=== PATIENT | female | born 1990 | race Caucasian/White ===

== ENCOUNTER 2023-11-29 10:10 | Outpatient (CLI) | payer OTHER, SELFPAY ==
--- NOTE | 2023-11-29 10:15 | US_ITS ---
Final Report Patient: TIFFANIE FUENTES Facility:?[facility] Patient ID:?[id number] Site Patient ID:?[id number]. Site :?1990 Study:? OB Pelvis -11/29/2023 10:49:14 AM Ordering Physician:HILARIA SHETH Final Report: INDICATION: First trimester scan, establish dates. COMPARISON: None. TECHNIQUE: Real-time ibarra-scale imaging of the pelvis was performed. FINDINGS: Sonographic imaging demonstrates a single living intrauterine gestation. The embryo demonstrates a regular cardiac rate measuring 169 beats per minute. The embryo`s crown-rump length measurement of 2.8 cm corresponds to a gestational age of 9 weeks 4 days with a sonographic due date of 06/29/2024. There is a normal-appearing yolk sac. There are no gross abnormalities noted within the embryo at this early state of development. The gestational sac has a normal appearance. There is no evidence of a perigestational hemorrhage. The amount of fluid within the sac appears appropriate for gestational age. The cervix is closed. The myometrium appears normal. The ovaries are of normal size. Corpus luteal cyst left ovary measuring 1.4 cm. There are no suspicious fluid collections noted in the cul-de-sac. IMPRESSION: Normal first trimester OB ultrasound exam. Gestational age calculated at 9 weeks 4 days with a sonographic due date of 06/29/2024. Dictated by Chandler Veronica MD @ 11/29/2023 11:46:45 AM (Electronic Signature)
== END 2023-11-29 10:11 | disposition home or self-care (01) ==
LOC: US 10:11
PROVIDERS: PCP Advanced Practice Midwife; Visit Provider Advanced Practice Midwife
DX: Z34.91 Encounter for supervision of normal pregnancy, unspecified, first trimester (principal); Z3A.09 9 weeks gestation of pregnancy
CPT/HCPCS: 76801; 86703; 86706; 86803; 86850; 86900; 86901; 87086; 87340

== ENCOUNTER 2023-11-29 12:02 | Outpatient (CLI) | payer OTHER, SELFPAY | END 2023-11-29 12:03 | disposition home or self-care (01) | LOC: NFLDREF 12:05 | PROVIDERS: PCP Advanced Practice Midwife; Visit Provider Advanced Practice Midwife | DX: Z34.91 Encounter for supervision of normal pregnancy, unspecified, first trimester (principal) | CPT/HCPCS: 80177; 86592; 86703; 86704; 86706; 86762; 86787; 86803; 86850; 86900; 86901; 87086; 87340 ==

== ENCOUNTER 2023-12-27 12:14 | Outpatient (CLI) | payer OTHER, SELFPAY ==
--- NOTE | 2023-12-27 12:30 | US_ITS ---
Patient: TIFFANIE FUENTES Facility:?[facility] Patient ID:?[id number] Site Patient ID:?[id number]. Site :?1990 Study:?US-OB Pelvis OB TA < 14 WEEKS-12/27/2023 12:48:32 PM Ordering Physician:?IVANIA URENA M.D. Final Report: Indication: No heart tones LMP: 09/23/2023 Technique: Real-time sonographic images of the pelvis were obtained transabdominally using grayscale, color, and Doppler imaging. Comparison: 11/29/2023 Findings: Uterus: Normal. Gestational sac: Mean sac diameter measures 7.3 centimeter. pole: [place]-rump length measures 6.4 centimeter, compatible with an average ultrasound age of 12 weeks 6 days. Yolk sac: Not visualized. heart rate: None. Right ovary: Not visualized. Left ovary: Not visualized. Other: No free fluid. Impression: The crown-rump length is <7 mm, with no heartbeat visualized. Findings are consistent with early failure. Dictated by Anthony Tatum MD @ 12/27/2023 1:59:24 PM Signed by:?Anthony Tatum MD @12/27/2023 1:59:24 PM (Electronic Signature)
== END 2023-12-27 12:15 | disposition home or self-care (01) ==
PROVIDERS: PCP Advanced Practice Midwife; Visit Provider Obstetrics & Gynecology
DX: O36.8310 Maternal care for abnormalities of the fetal heart rate or rhythm, first trimester, not applicable or unspecified (principal); Z3A.12 12 weeks gestation of pregnancy
CPT/HCPCS: 76801

== ENCOUNTER 2024-01-28 20:12 | Day surgery (SDC) | payer OTHER, SELFPAY ==
[2024-01-28 20:18] VITALS: BP 117/78; PULSE 128; RESP 18; TEMP 36.8; O2SAT 98; BMI 27.3
--- NOTE | 2024-01-28 20:24 | ED_ITS ---
HPI - General Date Seen: 01/28/24 Chief complaint: OB/Uterine Contractions Stated complaint: 12 weeks , miscarrying Time Seen by Provider: 01/28/24 20:24 Source: patient, family, RN notes reviewed and old records reviewed Mode of arrival: ambulatory Limitations: no limitations History of Present Illness HPI Narrative: Hemalatha is a very pleasant 33-year-old female with a history of seizure disorder, previous who presents to [place] ER for evaluation regarding difficulty passing products of conception. Patient initially seen in November at our OB Clinic at approximately 9 weeks with an EDC 06/29/24 per reported LMP on 09/23/23. Unfortunately on December 26 it was noted that there was no heartbeat. The fetus did not pass and she was started on Mifepristone yesterday. She had cramping throughout the day today and stated is some significant bleeding at home. She comes to the emergency room because she still has products of conception in her vagina that will not come out. States she can feel something protruding from her vagina. She denies fever today she has not had any lightheadedness or fainting. She has not taken anything for the pain. Related Data Home Medications Medication Instructions Recorded Confirmed levetiracetam 750 mg tablet 750 mg PO BID 11/29/23 01/27/24 (Keppra) docosahexaenoic acid 200 mg mg PO 12/27/23 01/27/24 capsule ( DHA) Previous Rx's Medication Instructions Recorded ibuprofen 800 mg tablet 800 mg PO Q8H PRN pain #14 tabs 01/27/24 ondansetron 4 mg disintegrating 4 mg PO Q8H PRN nausea and 01/27/24 tablet vomiting #10 tabs Allergies Allergy/AdvReac Type Severity Reaction Status Date / Time No Known Drug Allergies Allergy Verified 01/27/24 08:25 Review of Systems Status of ROS: Reports: 6 or more systems reviewed and unremarkable except as noted in History and below Narrative: Denies personal or family history of problems with anesthesia. Denies recent illness fever or chills. No personal or family history of bleeding or clotting disorders. Const: Denies: fever or chills Cardio: Denies: shortness of breath with exertion Resp: Denies: shortness of breath GI: Reports: abdominal pain; Denies: nausea or vomiting : Denies: painful urination PFSH PFS Medical History Exercise-induced asthma ?J45.990 - Exercise induced bronchospasm (ICD-10) Surgical History History of delivery ?Z98.891 - History of uterine scar from previous surgery (ICD-10) H/O adenoidectomy ?Z90.89 - Acquired absence of other organs (ICD-10) History of tonsillectomy ?Z90.89 - Acquired absence of other organs (ICD-10) History of toe surgery ?Z98.890 - Other specified postprocedural states (ICD-10) Family History Mother High blood pressure Osteoporosis Father Stroke Testicular cancer Maternal Grandfather Coronary artery disease Social History Narrative: SOCIAL? ? Education: Bachelor's? ? 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 ? Partner: Dilip? 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 ? Pets: dog? ? Abuse: Denies past Safe at home with current partner ? ? ? Special Diet: Denies? ? Ok with a blood transfusion: yes? ? Culture or scientologist beliefs: denies? RISK FACTORS? ? Exercise Times/wk: 3-4 week, cardio and weights? ? Depression/Anxiety: denies? ? Previous Treatments NA ? Therapy NA FOX: 2 PHQ 9: 3? ? Seat Belt Use: Routinely ? Smoking: Denies past/present? ? Alcohol/day: Denies while ? ?When not 6 glasses of wine a month Caffeine: Coffee one daily? ? What is your current living situation?: I presently have a place to live Problems where you live: no known problems In the past 12 months, utilities in danger of being shut off: no In past 12 months, lack of transportation kept you from medical appts, meetings, work, or getting things needed for daily living: no In the past 12 mos, have been you worried that your food would run out before you had money to buy more?: never true In the past 12 mos, the food you bought just didn't last and you didn't have money to buy more?: never true Smoking Status: Unknown if ever smoked How often does anyone, including family, friends and others, physically hurt you : never How often does anyone, including family, friends and others, insult or talk down to you: never How often does anyone, including family, friends and others, threaten you with harm: never How often does anyone, including family, friends and others, scream or curse at you: never Little interest or pleasure in doing things: not at all Feeling down, depressed, or hopeless: not at all Exam Narrative: Exam Narrative: Hemalatha is alert and oriented. She is very nervous about taking off adult diaper that she has on this time because she states there will be a lot of blood. She does agree to be examined in bed.. No respiratory distress at this time. Lungs are clear bilaterally. Heart with a tachycardic rate but normal rhythm. Abdomen is soft. Oral cavity with moist mucous membranes. Dentition is intact. Posterior oropharynx clearly seen. Neck is supple without lymphadenopathy. Examination of the vaginal area shows minimal to moderate clots at the vaginal opening. Gently these are removed. Patient is able to bear down and we do see more products of conception which I have removed. However, bimanual exam shows retained products in the vaginal vault that do not appear to be free early moving. Const: Vital Signs, click to edit/add: Vital Signs - 24 hr 01/28/24 20:18 01/28/24 21:20 Temperature 98.2 F 97.8 F Pulse Rate [Pulse Oximeter] 128 H 78 Respiratory Rate 18 20 Blood Pressure [Ri ght Upper Arm] 117/78 108/60 Pulse Oximetry 98 99 Oxygen Delivery Me thod Room Air Room Air Documenting provider has reviewed patient's vital signs: yes Course Course ED Course: At this time Dr. Lozano is professional skater for OBGYN. She is kind enough to consult in the ED this evening and unfortunately after removal of products and ultrasound there are still retained products of conception. Thus patient will be going to the OR for suction and curettage. Patient initially declines IV. Patient Rh positive. Vital Signs Vital signs: Initial Vital Signs Temperature 98.2 F 01/28/24 20:18 Temperature Source Temporal Artery Scan 01/28/24 20:18 Pulse Rate 128 H 01/28/24 20:18 Respiratory Rate 18 01/28/24 20:18 Blood Pressure 117/78 01/28/24 20:18 Blood Pressure Mean 91 01/28/24 20:18 Blood Pressure Position Sitting 01/28/24 20:18 Pulse Oximetry 98 01/28/24 20:18 Oxygen Delivery Method Room Air 01/28/24 20:18 Vital Signs Temperature 98.2 F 01/28/24 20:18 Pulse Rate 128 H 01/28/24 20:18 Respiratory Rate 18 01/28/24 20:18 Blood Pressure 117/78 01/28/24 20:18 Pulse Oximetry 98 01/28/24 20:18 Oxygen Delivery Method Room Air 01/28/24 20:18 Temperature 97.8 F 01/28/24 21:20 Pulse Rate 78 01/28/24 21:20 Respiratory Rate 20 01/28/24 21:20 Blood Pressure 108/60 01/28/24 21:20 Pulse Oximetry 99 01/28/24 21:20 Oxygen Delivery Method Room Air 01/28/24 21:20 Medications Administered Medications: Generic Name Dose Route Start Last Admin Trade Name Freq PRN Reason Stop Dose Admin Lactated Ringer's 1,000 mls @ 35 mls/hr 01/28/24 22:15 01/28/24 22:31 Lactated Ringers 1000 Ml IV 35 mls/hr .Q24H LEIDY Administration Discontinued Medications Generic Name Dose Route Start Last Admin Trade Name Freq PRN Reason Stop Dose Admin Doxycycline Hyclate 200 mg/ 250 mls @ 250 mls/hr 01/28/24 21:58 01/28/24 22:29 Sodium Chloride IVPB 01/28/24 21:59 250 mls/hr ONCE ONE Administration MDM - OB/Uterine Contractions MDM Narrative Medical decision making narrative: 1. Missed AB-retained products of conception noted on ultrasound. OBGYN consult and patient will be going to the OR tonight for suction and curettage. An IV has been placed. Patient is Rh positive. Further labs and test per Dr. Lozano. 2. History of seizure disorder-patient notes that her seizure disorder is under control. I do ask her if she needs medication prior to going to the OR in she states she does not. She has been told by her neurologist that she is able to go off of her medications if she chooses to do so. 2. Disposition-admit to same-day surgery under the care of Dr. Lozano Medical Records Attestation: I reviewed the patient's medical records. Lab Data Attestation: I reviewed the patient's lab results. Labs: Lab Results 01/28/24 Range/Units 21:58 WBC 10.69 (4.50-11.00) K/uL RBC 4.09 (4.00-5.20) m/uL Hgb 11.6 L (12.0-16.0) gm/dL Hct 35.3 (33.0-51.0) % MCV 86 (80-100) fL MCH 28 (26-34) pg MCHC 33 (32-36) gm/dL RDW Coeff of Hiram 12.7 (11.5-15.5) % Plt Count 240 (140-440) K/uL Neut % (Auto) 78.6 H (42.0-72.0) % Lymph % (Auto) 14.4 L (20-44) % [place]on % (Auto) 5.9 (0.0-11.0) % Eos % (Auto) 0.3 (0.0-7.0) % Baso % (Auto) 0.6 (0.0-3.0) % Neut # (Auto) 8.40 H (1.7-7.0) K/uL Lymph # (Auto) 1.50 (0.90-2.90) K/uL [place] # (Auto) 0.60 (0.00-0.90) K/UL Eos # (Auto) 0.03 (0.00-0.50) K/uL Baso # (Auto) 0.06 (0.00-0.30) K/uL Abs Immat Gran (auto) 0.02 (0.00-0.30) K/uL Imm/Tot Granulo (auto) 0.2 % Blood Type A Positive Antibody Screen NEGATIVE Imaging Data US - abdomen: Attestation: I have reviewed the pertinent imaging results. Radiologist's impression: Findings: The previously seen intrauterine gestation is no longer visualized. There is a small amount residual fluid within the endometrial cavity in the uterine fundus. The endometrium is not clearly depicted and has not been measured. There is moderate prominence of color Doppler blood flow within the myometrium and a question of increased Doppler blood flow within the endometrium. Retained products of conception is not excluded. IMPRESSION: 1. Previously seen intrauterine gestation is no longer visualized. Small amount of residual fluid is noted in the fundal endometrial cavity. 3. Increased color Doppler blood flow as noted. Retained products of conception is not excluded. Discharge Plan Discharge Clinical Impression: Missed , Seizure disorder Patient Disposition: XFER to OR Condition: Stable
--- NOTE | 2024-01-28 21:01 | US_ITS ---
Patient: TIFFANIE FUENTES Facility:?[facility] Patient ID:?[id number] Site Patient ID:?[id number]. Site :?1990 Study:?US-OB Pelvis OB F/U MISSED AB-01/28/2024 9:50:23 PM Ordering Physician:?JENNI PACE M.D. Final Report: INDICATION: Missed . OBSTETRICAL/PELVIC ULTRASOUND Comparison: 12/27/2023 ultrasound. Findings: The previously seen intrauterine gestation is no longer visualized. There is a small amount residual fluid within the endometrial cavity in the uterine fundus. The endometrium is not clearly depicted and has not been measured. There is moderate prominence of color Doppler blood flow within the myometrium and a question of increased Doppler blood flow within the endometrium. Retained products of conception is not excluded. IMPRESSION: 1. Previously seen intrauterine gestation is no longer visualized. Small amount of residual fluid is noted in the fundal endometrial cavity. 3. Increased color Doppler blood flow as noted. Retained products of conception is not excluded. BRANDIN WASHINGTON MD [employer] [employer] Dictated by Adis Washington MD @ 01/28/2024 10:22:43 PM Dictated by: Adis Washington MD @ 01/28/2024 22:23:31 Signed by:?Adis Washington MD @01/28/2024 10:23:31 PM (Electronic Signature)
[2024-01-28 21:20] VITALS: BP 108/60; PULSE 78; RESP 20; TEMP 36.6; O2SAT 99
--- NOTE | 2024-01-28 22:09 | P.GYNCN_ITS ---
MIRROR FRAMER - CN: HPI Data of Consult Time Seen by Provider: 22:09 Date Seen: 01/28/24 Patient: [facility] Patient Consult date: 01/28/24 Primary Care Provider: Not a Local Provider Consult Narrative Reason for consult: vaginal bleeding Narrative: Hemalatha Burleson is a 33 year old female who presented to the ED with incomplete . She was diagnosed an early loss on 12/28/23 at 13.4 weeks by LMP. CRL was consistent with 12.6 weeks gestation at that time but no heart tone. She saw Dr. Joel who counseled her on expectant versus medical versus surgical management options. Originally she had opted for a suction dilation curettage. However, she decided to do expected management instead. She returned to clinic on 01/27/2024 after having no signs or symptoms of passing and ask for medical management. She took move upper stone in misoprostol yesterday. She endorsed passing the fetus after cramping all day but she reports that there are still products left that she can feel in her vagina and it won't come out. She presented to the ED due to not being able to pass whatever is left in the vaginal vault and having increased bleeding. I was able to see retained products protruding the cervical os. Products of conception was grasped with ring forceps and removed. After removal of presenting products of conception from cervical os, patient still had bleeding. It was not brisk, but it was persistent. I recommended ultrasonographic evaluation to make sure she does not of retained products of conception. However, given the way that she is bleeding, I suspect there is still retained products. Patient is very tearful about this as she is hoping not to have need a suction D&C. Bedside ultrasound showed retained products of conception in the lower uterine segment. I informed Hemalatha that she'll continue to keep bleeding if there is any retained products left. I recommend a D&C as the best course of action at this point. Surgical management is is the primary mode of treatment if patient presents in an emergent situation which include hemorrhage (excessive/life threatening bleeding) or infection. It is also used if the previous 2 options fail. I reviewed how this procedure is performed. This is done in the operating room with conscious sedation. The cervix is dilated open, a plastic curette is advanced into the uterus and connected to a vacuum. The vacuum then pulls the out of the uterus. All tissue removed from the uterus is sent to the lab for testing to verify that tissue was obtained. I do not recommend cytogenetic testing unless the patient has had more than 1 miscarriage. Patient can, of course, request it if desired. Ultrasound guidance is generally not required. However, for this case, I will use ultrasound guidance due to her prolonged course. Risks with a suction curettage include injury to cervix or uterus -. Infection in the uterus resulting in endometritis -. She will receive antibiotics in the IV in the operating room prior to the procedure to prevent infection (200 mg of doxycycline). Chance of Asherman syndrome resulting in inability to conceive a in the future: 10/2499. Chance of anesthesia complications are extremely rare: Less than 1/100,000 especially with negative personal or family history of anesthesia issues. Expected recovery: Mild cramping after miscarriage/surgery usually controlled with [id number] extra-strength Tylenol and ibuprofen. Only restriction for activity postoperatively/after a miscarriage is nothing vaginally for 2 weeks. She should expect to have some bleeding for 2-4 weeks after surgery or spontaneous miscarriage. If she continues to have bleeding past 4 weeks I would recommend a follow-up ultrasound to assess for retained products of conception. All of her questions were answered. After reviewing risk, benefits and alternatives, patients desires to proceed with suction dilation and curettage. Patient's blood type: A+. RhoGAM unindicated. cc:: CC: Review of Systems Narrative: Patient denies fever, chills, chest pain, SOB, n/v, headache, vision changes, or dizziness. Positive for lower abdominal cramping. [facility] Medical History Exercise-induced asthma ?J45.990 - Exercise induced bronchospasm (ICD-10) Surgical History History of delivery ?Z98.891 - History of uterine scar from previous surgery (ICD-10) H/O adenoidectomy ?Z90.89 - Acquired absence of other organs (ICD-10) History of tonsillectomy ?Z90.89 - Acquired absence of other organs (ICD-10) History of toe surgery ?Z98.890 - Other specified postprocedural states (ICD-10) Family History Mother High blood pressure Osteoporosis Father Stroke Testicular cancer Maternal Grandfather Coronary artery disease Social History Narrative: SOCIAL? ? Education: Bachelor's? ? Work: quality for medical devices? ? Partner: Dilip? 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 ? Pets: dog? ? Abuse: Denies past Safe at home with current partner ? ? ? Special Diet: Denies? ? Ok with a blood transfusion: yes? ? Culture or mandaeism beliefs: denies? RISK FACTORS? ? Exercise Times/wk: 3-4 week, cardio and weights? ? Depression/Anxiety: denies? ? Previous Treatments NA ? Therapy NA FOX: 2 PHQ 9: 3? ? Seat Belt Use: Routinely ? Smoking: Denies past/present? ? Alcohol/day: Denies while ? ?When not 6 glasses of wine a month Caffeine: Coffee one daily? ? What is your current living situation?: I presently have a place to live Problems where you live: no known problems In the past 12 months, utilities in danger of being shut off: no In past 12 months, lack of transportation kept you from medical appts, meetings, work, or getting things needed for daily living: no In the past 12 mos, have been you worried that your food would run out before you had money to buy more?: never true In the past 12 mos, the food you bought just didn't last and you didn't have money to buy more?: never true How often does anyone, including family, friends and others, physically hurt you : never How often does anyone, including family, friends and others, insult or talk down to you: never How often does anyone, including family, friends and others, threaten you with harm: never How often does anyone, including family, friends and others, scream or curse at you: never Little interest or pleasure in doing things: not at all Feeling down, depressed, or hopeless: not at all Meds Home Medications and Allergies Home Medications Medication Instructions Recorded Confirmed Type levetiracetam 750 mg tablet 750 mg PO BID 11/29/23 01/27/24 History (Keppra) docosahexaenoic acid 200 mg mg PO 12/27/23 01/27/24 History capsule ( DHA) Allergies Allergy/AdvReac Type Severity Reaction Status Date / Time No Known Drug Allergies Allergy Verified 01/27/24 08:25 MIRROR FRAMER - Exam Physical Exam: Vital signs: Temp Pulse Resp BP Pulse Ox O2 Del Method 98.2 F 128 H 18 117/78 98 Room Air 01/28/24 20:18 01/28/24 20:18 01/28/24 20:18 01/28/24 20:18 01/28/24 20:18 01/28/24 20:18 Narrative: Physical exam: General: Tearful and grimacing in pain Psych: Alert and oriented x4, full affect HEENT: Normocephalic, atraumatic Lungs: Unlabored breathing Neuro: No focal deficit. Mentating appropriately Pelvic exam: Mons normal, clitoris normal, urethral meatus normal. Blood filled vaginal vault. Cervix with products of conception protruding from cervical os. Bimanual exam reveals uterus to be soft, tender due to cramping, mobile, anteverted, slightly enlarged and normal texture. No palpable adnexal masses or tenderness. Assessment and Plan Assessment and plan (1) Incomplete : Status: Acute Plan - Majority of product of conception removed at bedside - Retained product of conception on bedside ultrasound. - Plan: will proceed to OR for suction D&C. Consent signed
[2024-01-28 22:23] LABS: Basophils Absolute Auto 0.06 K/uL (0.00-0.30); Basophils Percent Auto 0.6 % (0.0-3.0); Eosinophils Absolute Auto 0.03 K/uL (0.00-0.50); Eosinophils Percent Auto 0.3 % (0.0-7.0); Hematocrit 35.3 % (33.0-51.0); Hemoglobin* 11.6 gm/dL (12.0-16.0); Immature Granulocytes Abs Auto 0.02 K/uL (0.00-0.30); Immature Granulocytes Pct Auto 0.2 %; Lymphocytes Percent Auto 14.4 % (20-44); Mean Corpuscular HGB Conc 33 gm/dL (32-36); Mean Corpuscular Hemoglobin 28 pg (26-34); Mean Corpuscular Volume 86 fL (80-100); Monocytes Percent Auto 5.9 % (0.0-11.0); Neutrophils Percent Auto 78.6 % (42.0-72.0); Platelet Count* 240 K/uL (140-440); RDW Coefficient of Variation % 12.7 % (11.5-15.5); Red Blood Count 4.09 m/uL (4.00-5.20); Slide Review Reflex No; White Blood Count* 10.69 K/uL (4.50-11.00)
[2024-01-28] MEDS: DOXYCYCLINE HYCLATE 200 MG in 0.9 % SODIUM CHLORIDE 250 ml 250 ML 250 MG IVPB (22:29)
[2024-01-28] MEDS: LACTATED RINGERS 1000 ML 1,000 ML 35 ML IV (22:31)
--- NOTE | 2024-01-28 22:36 | P.ANES_ITS ---
Anesthesia Charges Start Date/Time Anesthesia Start Date: 01/28/24 Anesthesia Start Time: 22:18 Stop Date/Time Anesthesia Stop Date: 01/28/24 Anesthesia Stop Time: 23:00 Summary Emergency: [employer]LECT[employer]PECTOR
[2024-01-28 23:05] VITALS: BP 98/65; PULSE 83; RESP 16; TEMP 36.4; O2SAT 100
[2024-01-28 23:45] VITALS: BP 81/58; PULSE 75; RESP 16; TEMP 36.5; O2SAT 100
--- NOTE | 2024-01-28 23:51 | P.PCNOB_ITS ---
Procedure Pre-op/Post-op diagnoses: Pre-Op/Post-Op Diagnoses Operation Date: 01/28/24 22:25 <No data on this case meets the specified criteria> Procedure: Procedures Operation Date: 01/28/24 22:25 Actual Procedure Side Surgeon p Suction Curettage Not Applicable Donna Lozano MD Estimated blood loss (mL): 50 Anesthesia type: MAC Complications: none Specimen: uterine contents Disposition: same day Narrative: ULTRASOUND-GUIDED SUCTION CURETTAGE PREOPERATIVE DIAGNOSIS: 1. Incomplete POSTOPERATIVE DIAGNOSIS: 1. Incomplete PROCEDURE: 1. EUA 2. Suction curettage SURGEON: Donna Lozano MD ANESTHESIA: MAC FINDINGS: 1. A 7 week size mobile anteverted uterus, no adnexal masses on EUA 2. Normal external genitalia, cervix dilated to 2 cm ESTIMATED BLOOD LOSS: 50 cc in the OR. 150 cc in the ED. URINE OUTPUT: 50 cc COMPLICATIONS: None PREOP ANTIBIOTIC: 200 mg Doxycycline SPECIMEN: 1. Products of conception INDICATIONS: Hemalatha is a 33 yo G2 P 1011, with diagnosis of missed at 13.4 weeks. DESCRIPTION OF PROCEDURE: The patient was taken to the operating room where MAC was administered. She was prepared and draped in normal sterile fashion in the dorsal lithotomy position in yellow fin stirrups, taking care to avoid lower extremity hyperextension, hyperflexion or compression. A surgical time-out was performed with the entire operative staff per protocol. Perioperative antibiotics were given and pneumoboots were placed and activated. EUA revealed the above findings. Bladder was drained with a red rubber. A speculum was placed in the patient's vagina and a ring forceps was placed on the anterior lip of the cervix. The cervix did not need to be dilated and could accommodate an 11 [place] diameter suction curettage. The suction curettage was then inserted under direct visualization. The uterus was then gently suction curetted and rotated to clear the uterus of products of conception. This was performed until a gritty texture was noted and the uterus was cleared of all remaining products of conception. This was confirmed with ultrasound at the end as well. There was minimal bleeding noted after the suction curettage was removed. The ring forceps was removed from the anterior lip of the cervix and excellent hemostasis was noted. All instruments were removed. Debrief performed per protocol and specimen reviewed. Specimen was sent to pathology. The patient tolerated the procedure well. Sponge, lap and needle counts were correct x 2. The patient was taken to the recovery room in stable condition.
[2024-01-29] VITALS: BP 109/59; PULSE 73; RESP 18; TEMP 36.4; O2SAT 99
[2024-01-29 00:15] VITALS: BP 97/69; PULSE 100; RESP 18; TEMP 36; O2SAT 100
--- NOTE | 2024-01-29 01:02 | PC.NURSE ---
NURSING NOTE: PT ARRIVED TO THE FLOOR @3411. PT A&O. TEARFUL. VSS ON RA. IV TO RIGHT AC PATENT. PT DENIES SOB, CP, N/V. DENIES PAIN. SCANT AMOUNT OF BLOOD ON PAD. PT TOLERATES ICE CHIPS, WATER, CRACKERS. PT ABLE TO MOVE SELF IN AND OUT OF BED TO USE BATHROOM. VOIDING WITHOUT DIFFICULTY. FAMILY AT BEDSIDE SUPPORTIVE AND COMFORTING. DISCHARGE PAPERWORK COMPLETED AND SIGNED. PT D/C FROM FLOOR WITH FAMILY @8215.
== END 2024-01-29 00:45 | disposition home or self-care (01) ==
LOC: ED 22:10 → SS 22:17 → MEDSURG 23:27
PROVIDERS: Emergency Provider Family Medicine; Visit Provider Obstetrics & Gynecology
PROC: (CPT 59812; principal; 2024-01-28 22:15)
DX: O03.30 Unspecified complication following incomplete spontaneous abortion (principal); G40.909 Epilepsy, unspecified, not intractable, without status epilepticus
CPT/HCPCS: 59812; 01965; 36415; 76816; 76998; 85025; 86850; 86900; 86901; 88305; 99140; 99284; 99285; J1100; J1885; J2250; J2405; J2704; J3010; J7050; J7120

== ENCOUNTER 2024-07-23 11:08 | Outpatient (CLI) | payer OTHER, SELFPAY | END 2024-07-23 11:09 | disposition home or self-care (01) | PROVIDERS: Visit Provider Advanced Practice Midwife | DX: Z34.91 Encounter for supervision of normal pregnancy, unspecified, first trimester (principal); Z3A.01 Less than 8 weeks gestation of pregnancy | CPT/HCPCS: 76817; 84702 ==

== ENCOUNTER 2024-07-25 12:05 | Outpatient (CLI) | payer OTHER, SELFPAY | END 2024-07-25 12:06 | disposition home or self-care (01) | LOC: NFLDREF 07-28 23:11 | PROVIDERS: Visit Provider Advanced Practice Midwife | DX: Z34.90 Encounter for supervision of normal pregnancy, unspecified, unspecified trimester (principal) | CPT/HCPCS: 84702 ==

== ENCOUNTER 2024-08-06 10:35 | Outpatient (CLI) | payer OTHER, SELFPAY | END 2024-08-06 10:36 | disposition home or self-care (01) | PROVIDERS: Visit Provider Obstetrics & Gynecology | DX: N96 Recurrent pregnancy loss (principal) | CPT/HCPCS: 76817; 84443; 86038; 86039; 86147 ==

== ENCOUNTER 2024-11-13 15:17 | Outpatient (CLI) | payer OTHER, SELFPAY | END 2024-11-13 15:18 | disposition home or self-care (01) | PROVIDERS: Visit Provider Registered Nurse | DX: Z34.90 Encounter for supervision of normal pregnancy, unspecified, unspecified trimester (principal); R76.8 Other specified abnormal immunological findings in serum | CPT/HCPCS: 84144; 84702; 85520; 85525; 85598; 85610; 85613; 85670; 85730 ==

== ENCOUNTER 2024-11-29 10:04 | Outpatient (CLI) | payer OTHER, SELFPAY | END 2024-11-29 10:05 | disposition home or self-care (01) | PROVIDERS: Visit Provider Midwife | DX: Z34.91 Encounter for supervision of normal pregnancy, unspecified, first trimester (principal); Z3A.01 Less than 8 weeks gestation of pregnancy | CPT/HCPCS: 76817; 83021; 86703; 86706; 86803; 86850; 86900; 86901; 87086; 87340; 87491; 87591 ==

== ENCOUNTER 2024-11-29 11:20 | Outpatient (CLI) | payer OTHER, SELFPAY ==
[2024-11-29 18:45] LABS: Chlamydia DNA Amplified* NOT DETECTED (No Detected); GC DNA Amplified* NOT DETECTED (No Detected)
== END 2024-11-29 11:21 | disposition home or self-care (01) ==
PROVIDERS: Visit Provider Midwife
DX: Z34.91 Encounter for supervision of normal pregnancy, unspecified, first trimester (principal); Z3A.01 Less than 8 weeks gestation of pregnancy
CPT/HCPCS: 83020; 83021; 85660; 86592; 86703; 86704; 86706; 86762; 86787; 86803; 86850; 86900; 86901; 87086; 87340; 87491; 87591

== ENCOUNTER 2025-01-25 14:35 | Outpatient (CLI) | payer OTHER, SELFPAY | END 2025-01-25 14:36 | disposition home or self-care (01) | LOC: NFLDREF 14:36 | PROVIDERS: Visit Provider Advanced Practice Midwife | DX: Z34.92 Encounter for supervision of normal pregnancy, unspecified, second trimester (principal); Z3A.15 15 weeks gestation of pregnancy | CPT/HCPCS: 81511 ==

== ENCOUNTER 2025-02-13 08:43 | Outpatient (CLI) | payer OTHER, SELFPAY | END 2025-02-13 08:44 | disposition home or self-care (01) | LOC: US 08:43 | PROVIDERS: Visit Provider Midwife | DX: O09.523 Supervision of elderly multigravida, third trimester (principal); O99.352 Diseases of the nervous system complicating pregnancy, second trimester; G40.909 Epilepsy, unspecified, not intractable, without status epilepticus; Z3A.18 18 weeks gestation of pregnancy | CPT/HCPCS: 76811 ==

== ENCOUNTER 2025-02-22 10:21 | Outpatient (CLI) | payer OTHER, SELFPAY | END 2025-02-22 10:22 | disposition home or self-care (01) | PROVIDERS: Visit Provider Midwife | DX: G40.909 Epilepsy, unspecified, not intractable, without status epilepticus (principal); Z51.81 Encounter for therapeutic drug level monitoring | CPT/HCPCS: 80177 ==

== ENCOUNTER 2025-04-18 11:58 | Outpatient (CLI) | payer OTHER, SELFPAY | END 2025-04-18 11:59 | disposition home or self-care (01) | LOC: NFLDREF 04-22 17:54 | PROVIDERS: Visit Provider Obstetrics & Gynecology | DX: G40.909 Epilepsy, unspecified, not intractable, without status epilepticus (principal) | CPT/HCPCS: 80177 ==

== ENCOUNTER 2025-04-24 13:35 | Outpatient (CLI) | payer OTHER, SELFPAY | END 2025-04-24 13:36 | disposition home or self-care (01) | LOC: US 13:35 | PROVIDERS: Visit Provider Midwife | DX: O09.523 Supervision of elderly multigravida, third trimester (principal); Q89.9 Congenital malformation, unspecified; Z3A.28 28 weeks gestation of pregnancy | CPT/HCPCS: 76816; 86592 ==

== ENCOUNTER 2025-05-06 12:34 | Outpatient (CLI) | payer OTHER, SELFPAY | END 2025-05-06 12:35 | disposition home or self-care (01) | LOC: NFLDREF 12:35 | PROVIDERS: Visit Provider Obstetrics & Gynecology | DX: O09.93 Supervision of high risk pregnancy, unspecified, third trimester (principal); Z3A.30 30 weeks gestation of pregnancy | CPT/HCPCS: 80177 ==

== ENCOUNTER 2025-06-03 14:43 | Outpatient (CLI) | payer OTHER, SELFPAY | END 2025-06-03 14:44 | disposition home or self-care (01) | LOC: NFLDREF 14:45 | PROVIDERS: Visit Provider Obstetrics & Gynecology | DX: G40.909 Epilepsy, unspecified, not intractable, without status epilepticus (principal); Z79.899 Other long term (current) drug therapy | CPT/HCPCS: 80177 ==

== ENCOUNTER 2025-06-19 11:10 | Outpatient (CLI) | payer OTHER, SELFPAY | END 2025-06-19 11:11 | disposition home or self-care (01) | LOC: NFLDREF 06-27 02:00 | PROVIDERS: Visit Provider Obstetrics & Gynecology | DX: Z34.93 Encounter for supervision of normal pregnancy, unspecified, third trimester (principal); Z3A.36 36 weeks gestation of pregnancy | CPT/HCPCS: 87081; 87653 ==

== ENCOUNTER 2025-06-26 15:11 | Inpatient (IN) | payer OTHER, SELFPAY ==
[2025-06-26] VITALS (86 sets, daily range): BP systolic 111–159; BP diastolic 60–101; PULSE 85–148; RESP 20–22; TEMP 36.8–37.2; O2SAT 78–100
[2025-06-26 15:35] LABS: Hematocrit 41.1 % (33.0-51.0); Hemoglobin* 13.8 gm/dL (12.0-16.0); Immature Granulocytes Pct Auto 0.5 %; Mean Corpuscular HGB Conc 34 gm/dL (32-36); Mean Corpuscular Hemoglobin 27 pg (26-34); Mean Corpuscular Volume 81 fL (80-100); RDW Coefficient of Variation % 12.7 % (11.5-15.5); Red Blood Count 5.05 m/uL (4.00-5.20); White Blood Count* 17.38 K/uL (4.50-11.00)
[2025-06-26 15:38] LABS: Immature Granulocytes Abs Auto 0.10 K/uL (0.00-0.30); Lymphocytes Absolute Auto 1.20 K/uL (0.90-2.90); Slide Review Reflex No
--- NOTE | 2025-06-26 15:45 | PM.OBHPLI ---
OB - H&P: HPI Labor/Induction History of Present Illness Time Seen by Provider: 15:30 Date Seen: 06/26/25 Chief Complaint: Spontaneous onset of labor, TOLAC Narrative: Hemalatha Bravo is a 35 year old at 37w2d GA who presents for spontaneous onset of labor as a TOLAC. is complicated by history of (failure to progress, NRFHT), history of PPH, epilepsy on keppra, AMA and persistent right umbilical artery. Hemalatha notes she is having regular and painful contractions every 2-3 minutes. She describes SROM of clear fluid 30 minutes prior to presentation. She denies bleeding. Endorses active movement. Notes intermittent urge to push. Specific Issues/Plans G4 P 1021 Partner: Dilip? Daughter: Vilma 3 yo Wants TOLAC H&P completed by [] on []? Baby boy: [] # DUDLEY positive (07/2024):?MFM consult sent # Hx of - failure to progress, cat 2. # Hx of PPH due to atony - pt perceives this was due to pitocin Desires TOLAC Had a traumatic first delivery and felt very pressured. Desires comprehensive counseling, options when safe to do so. Consent signed on 05/24. Discussed IV, blood transfusion, continuous monitoring - ok with doing those. # AMA-consents to Lev 2, NIPT, carrier testing and wants to know sex # Hx Epilepsy-stable on levetiracetam (Keppra) Per neurology, first seizure in 2006, 2nd in 2008 when off meds x4 days; stable on 750 mg Keppra BID Consulted neurology in early : 01/23/2025, follow-up in 8-10 weeks Neurology: levetiracetam level monthly (can be done here-last drawn 01/23) Results need to be sent to [facility] so they may adjust dose as needed ( , ATTN: Bertha Walker PA-C) MFM consult recommended- declined, has visit with MFM for level 2 anatomy scan Serial US at 28, 34 weeks which can be done with MFM in [place] - FYI declined 34 week growth 04/18/25: Levetiracetam 8mcg/mL (low): result faxed to [facility]. Pt increased keppra to 1000mg BID. 05/06/25: 9.5 (L) 06/03/25: 11.3 Normal #Persistent R umbilical artery echo 03/26/25: normal echo, no follow up needed # GBS self collected by patient Imaging:? 1st trimester: 10/29/24 SLIUP consistent with dates?? Anatomy scan Level II (02/15/2025): Impression: 1. Domínguez at 18 weeks 2 days gestational age by LMP and 7 week 3 day US. 2. A persistent right umbilical vein is identified. 3. No other differences commonly detected by ultrasound were identified in the detailed anatomic survey within the limits of ultrasound. 4. Growth parameters and estimated weight were consistent with gestational age predicted by assigned LIAN. 5. The amniotic fluid volume appeared normal. 6. On transabdominal imaging the cervix appeared long and closed.?? 03/26/25: normal echo, no follow up needed 04/24: EFW 1273g at 54%ile, AC 75.5%. MVP 7.6cm. Visualized anatomy is normal, aside from persistent R umbilical vein. Others: []? ? COVID: completed first series in 2020, booster declined Flu:?declined Tdap:?declined RSV:???NA 32wk Mental Health:?PHQ-9=4, FOX-7=0 34wk hgb:??? Pap: Needs PAP PP, declined at [facility]? ? Meds Home Medications and Allergies Home Medications ?Medication ?Instructions ?Recorded ?Confirmed ?Type docosahexaenoic acid 200 mg mg PO 12/27/23 06/19/25 History capsule ( DHA) levetiracetam 750 mg tablet 1,000 mg PO BID 04/18/25 06/19/25 History (Keppra) magnesium 250 mg tablet 250 mg PO QDAY 04/18/25 06/19/25 History Allergies Allergy/AdvReac Type Severity Reaction Status Date / Time No Known Drug Allergies Allergy Verified 06/19/25 10:57 OB - H&P: Exam Physical Exam: Vital signs: Temp Pulse Resp BP Pulse Ox 98.3 F 99 20 139/76 83 L 06/26/25 15:34 06/26/25 15:19 06/26/25 15:19 06/26/25 15:19 06/26/25 15:15 Narrative: General: Alert and oriented. In distress during contraction episodes due to pain. Psych: Appropriate mood and affect Abdomen: Gravid. No 3rd trimester growth ultrasound. EFW by ultrasound on 04/24/2025 was the 54th percentile. Cervix: 5/90/0, no palpable bag of water - pt reported SROM prior to admission. Vertex by SVE. FHR: Category 1: baseline 135bpm, moderate variability, accelerations present, early decelerations present [place]emp: Contacting q2-3 minutes OB - Results Labs Labs: Short CBC 06/26/25 Range/Units 15:20 WBC 17.38 H (4.50-11.00) K/uL Hgb 13.8 (12.0-16.0) gm/dL Hct 41.1 (33.0-51.0) % Plt Count 264 (140-440) K/uL OB - Problem Based A/P Additional Plan (1) High-risk supervision: Status: Acute (2) Medication exposure during first trimester of : Status: Acute (3) Umbilical abnormality: Problem details: persistent right umbilical vein Status: Acute (4) HSV-2 (herpes simplex virus 2) infection: Problem details: no hx of genital lesions Status: Acute (5) Previous delivery affecting : Status: Acute (6) Seizure disorder: Problem details: no seizures for many years, followed by [facility] Status: Acute Plan Hemalatha is a 35yo at 37w2d GA who presents for spontaneous onset of labor. is complicated by history of (failure to progress, NRFHT), history of PPH, [facility], AMA and persistent right umbilical artery. - Patient is 5/90/0 on admission, aldo q2-3 minutes painfully. Describes SROM of clear fluid about 30 minutes prior to presentation. Admit to Labor and Delivery. - Patient has been extensively counseled about mode of delivery, TOLAC consent signed by patient and Dr. Lozano on 05/24. She notes that she had a traumatic experience with her 1st , where she has requested thorough counseling. Place IV, obtain stat CBC and type and screen given TOLAC and history of hemorrhage. - OR crew notified of patient arrival (TOLAC in active labor) - preferences were reviewed - patient denies active management of the third stage with IV pitocin. Explained this would be my medical recommendation, particularly given TOLAC and her history of PPH. Declines AMTSL regardless, notes she may be agreeable to pitocin if excess bleeding is noted. - Discussed AAP recommendation for 3-60 seconds of delayed cord clamping pending a reassuring immediate assessment. Patient desires 5 minutes of delayed cord clamping, desires baby on chest. She notes she may be agreeable to earlier clamping if resuscitation or evaluation at warmer is required. - Pain control per patient preference/anesthesia. Planning nitrous oxide at this time. - BT A+, active T/S on file. Patient has previously provided written consent to transfusion via TOLAC consent. - GBS negative, no antibiotics indicated - Continuous monitoring ongoing given TOLAC. Category 1 at presentation. - Plan next cervical exam in approximately 2 hours, sooner as clinically indicated
[2025-06-26] MEDS: LACTATED RINGERS 1000 ML 1,000 ML 1200 ML IV (16:40)
[2025-06-26] MEDS: ROPIVACAINE 0.2% 100 ml 100 ML 12 MG EPIDURAL (17:02)
[2025-06-26] MEDS: LIDOCAINE 2% (PF) 5 ML VIAL EPIDURAL (17:02)
--- NOTE | 2025-06-26 17:09 | PM.ANBPRC ---
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 - Recurrent loss (ICD-10) Missed with demise before 20 completed weeks of gestation ?O02.1 - Missed (ICD-10) Exercise-induced asthma ?J45.990 - Exercise induced bronchospasm (ICD-10) Surgical History History of delivery ?Z98.891 - History of uterine scar from previous surgery (ICD-10) H/O adenoidectomy ?Z90.89 - Acquired absence of other organs (ICD-10) History of tonsillectomy ?Z90.89 - Acquired absence of other organs (ICD-10) History of toe surgery ?Z98.890 - Other specified postprocedural states (ICD-10) Family History Mother High blood pressure Osteoporosis Father Stroke Testicular cancer Maternal Grandfather Coronary artery disease Social History Narrative: SOCIAL? ? Education: Bachelor's? ? Work: quality for medical devices? ? Partner: Dilip? 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 ? Pets: dog? ? Abuse: Denies past Safe at home with current partner ? ? ? Special Diet: Denies? ? Ok with a blood transfusion: yes? ? Culture or congregational beliefs: denies? RISK FACTORS? ? Exercise Times/wk: 3-4 week, cardio and weights? ? Depression/Anxiety: denies? ? Previous Treatments NA ? Therapy NA FOX: 2 PHQ 9: 3? ? Seat Belt Use: Routinely ? Smoking: Denies past/present? ? Alcohol/day: Denies while ? ?When not 6 glasses of wine a month Caffeine: Coffee one daily? ? What is your current living situation?: I presently have a place to live Problems where you live: no known problems In the past 12 months, utilities in danger of being shut off: no In past 12 months, lack of transportation kept you from medical appts, meetings, work, or getting things needed for daily living: no In the past 12 mos, have been you worried that your food would run out before you had money to buy more?: never true In the past 12 mos, the food you bought just didn't last and you didn't have money to buy more?: never true Smoking Status: Unknown if ever smoked How often does anyone, including family, friends and others, physically hurt you: never How often does anyone, including family, friends and others, insult or talk down to you: never How often does anyone, including family, friends and others, threaten you with harm: never How often does anyone, including family, friends and others, scream or curse at you: never Meds Home Medications and Allergies Home Medications ?Medication ?Instructions ?Recorded ?Confirmed ?Type docosahexaenoic acid 200 mg mg PO 12/27/23 06/19/25 History capsule ( DHA) levetiracetam 750 mg tablet 1,000 mg PO BID 04/18/25 06/19/25 History (Keppra) magnesium 250 mg tablet 250 mg PO QDAY 04/18/25 06/19/25 History Allergies Allergy/AdvReac Type Severity Reaction Status Date / Time No Known Drug Allergies Allergy Verified 06/19/25 10:57 Results Labs Labs: Laboratory Results - last 24 hr 06/26/25 15:20 WBC 17.38 H RBC 5.05 Hgb 13.8 Hct 41.1 MCV 81 MCH 27 MCHC 34 RDW Coeff of Hiram 12.7 Plt Count 264 Neut % (Auto) 89.2 H Lymph % (Auto) 7.1 L [place] % (Auto) 3.0 Eos % (Auto) 0.0 Baso % (Auto) 0.2 Neut # (Auto) 15.50 H Lymph # (Auto) 1.20 [place] # (Auto) 0.50 Eos # (Auto) 0.00 Baso # (Auto) 0.00 Abs Immat Gran (auto) 0.10 Imm/Tot Granulo (auto) 0.5 Blood Type A Positive Antibody Screen NEGATIVE Vital Signs Vital Signs: Last Vital Signs Temp 98.3 F 06/26/25 15:34 Pulse 101 H 06/26/25 17:09 Resp 22 06/26/25 16:26 BP 139/68 06/26/25 17:09 Pulse Ox 100 06/26/25 17:07 Anesthesia Procedures Epidural Insertion Patient Location: OB Start Time: 16:45 Stop Time: 17:15 Start Date: 06/26/25 Stop Date: 06/26/25 Reason for Block: primary anesthetic Patient Position: sitting Performed By: Tr Hayward Preanesthetic Checklist: IV checked, risks and benefits discussed, surgical consent, monitors and equipment checked, pre-op evaluation, timeout performed and anesthesia consent Prep: chlorhexidine gluconate Monitoring: blood pressure monitoring, radiation monitor, continuous pulse oximetry and heart rate Approach: midline Vertebral Space: lumbar (1-5) Needle Type: Tuohy needle Injection Technique: continuous catheter (catheter) Needle gauge: 17 Needle Length (cm): 10 cm Needle Insertion Depth (cm): 5 Catheter Gauge: 19 Catheter Type: multi-orifice Catheter at skin depth (cm): 10 Test Dose Result: negative and lidocaine 1.5% with epinephrine 1 to 200,000
[2025-06-26] MEDS: LACTATED RINGERS 1000 ML 1,000 ML 125 ML IV (17:35)
--- NOTE | 2025-06-26 19:39 | P.OBPN_ITS ---
Subjective Time Seen by Provider: 18:30 Date Seen: 06/26/25 Narrative: Hemalatha Bravo is a 35 year old at 37w2d GA who presents for spontaneous onset of labor as a TOLAC. is complicated by history of (failure to progress, NRFHT), history of PPH, epilepsy on keppra, AMA and persistent right umbilical artery. Last exam at 1630 demonstrated change from 5 to 9cm, requested by patient for pain control planning. She subsequently received an epidural. She notes she continues to have pain and pressure with contractions, resting comfortably in between. Recommended cervical exam to asses for labor progress in the active phase. Patient declined. Explained my medical rational to assess for cervical change, where with normal progress in the active phase we would expect her to likely be completely dilated. If no interval change in noted, this would suggest labor dystocia in the active phase where we would recommend positional changes, IV pitocin and potentially an IUPC to assess for adequacy of contractions. Discussed labor dystocia is associated with adverse maternal and outcomes, where my goal would be to optimize our likelihood of successful with labor augmentation only if required. Patient declined exam. She is unable to say when she would be comfortable with a cervical exam. status is reassuring, category 1. Contractions occur every 2-4 hours. I explained that we will continue to assess for her willingness to complete a ce rvical exam. Explained if she failed to have demonstrable cervical change at 6 hours (presuming inadequate contractions) this would be an indication for per ACOG guidelines. Again, explained my rational to try to augment labor only if required in order to prevent this. She expressed understanding. 1930: Patient was agreeable to repositioning in throne position. Notes increased pressure with that position change. Declines exam to RN. Objective Vital Signs: Last Vital Signs Temp 98.7 F 06/26/25 19:33 Pulse 114 H 06/26/25 19:33 Resp 22 06/26/25 16:26 BP 133/82 06/26/25 19:33 Pulse Ox 97 06/26/25 19:37
--- NOTE | 2025-06-26 21:03 | PM.OBPNL ---
Subjective Date Seen: 06/26/25 Narrative: Hemalatha Bravo is a 35 year old at 37w2d GA who presents for spontaneous onset of labor as a TOLAC. is complicated by history of (failure to progress, NRFHT), history of PPH, epilepsy on keppra, AMA and persistent right umbilical artery. Last exam at 1630 demonstrated change from 5 to 9cm, requested by patient for pain control planning. She subsequently declined exams until now. She has been doing position changes. Objective Exam: General: Alert and oriented. Comfortable with epidural in place. Psych: Appropriate mood and affect Abdomen: Gravid. Cervix: 100/100/+1, URBANO at about 45 degree angle FHR: Category 2 - baseline 140bpm, moderate variability, 10x10 accelerations present, rare variable decelerations [place]: Contacting q2-3 minutes Vital Signs: Last Vital Signs Temp 98.9 F 06/26/25 20:11 Pulse 134 H 06/26/25 20:47 Resp 22 06/26/25 16:26 BP 131/101 H 06/26/25 20:47 Pulse Ox 98 06/26/25 20:12 Plan Plan: Hemalatha is a 35yo at 37w2d GA who presents for spontaneous onset of labor. is complicated by history of (failure to progress, NRFHT), history of PPH, epilepsy on keppra, AMA and persistent right umbilical artery. - Patient is complete and +1, URBANO with 45 degrees of rotation noted - Recommended initiation of expulsive efforts, patient politely declined in favor of 30 minutes of passive descent. Start second stage now - Plan to start pushing in 30 minutes per pt preference. - OR crew in house - Continuous monitoring ongoing - BT A+, active T/S on file. Patient has previously provided written consent to transfusion via TOLAC consent. - GBS negative, no antibiotics indicated
[2025-06-26] MEDS: OXYTOCIN 30 unit/500 ML in NS 30 UNIT/500 ML BAG 250 UNIT IVPB (23:48)
[2025-06-26] MEDS: TRANEXAMIC ACID 100 MG/ML INJ 1000 MG IV (23:59)
[2025-06-27] VITALS (33 sets, daily range): BP systolic 93–151; BP diastolic 52–83; PULSE 86–137; RESP 16; TEMP 36.2–36.9; O2SAT 93–100
[2025-06-27] MEDS: LIDOCAINE 1 % PF 30 ML INJECTION (00:04)
--- NOTE | 2025-06-27 00:33 | W.PM.VAGD1_ITS ---
Procedure Procedure Done: Global Procedure Details: Vaginal After Repair of left labial laceration Events: Previous , Gestational Hypertension (PreE labs pending), AMA and Other (Epilepsy) Intrapartal Events: None Delivery monitor: external FHT Route of delivery: Laceration description: Labial (Left 2.5cm, right 1cm (unrepaired per patient preference)) Delivery repair: Vicryl Estimated blood loss (mL): 1,400 Anesthesia type: Epidural Disposition: floor Complications: hemorrhage due to uterine atony and delayed placental delivery Narrative: Hemalatha Bravo is a 35 year old at 37w2d GA who was admitted for spontaneous onset of labor as a TOLAC. is complicated by history of (failure to progress, NRFHT), history of PPH, epilepsy on keppra, AMA and persistent right umbilical artery. heart tones on admission were category 1. She developed a hypertensive disorder of in the active phase of labor, labs pending. Her labor progressed without augmentation and epidural was utilized for pain management. Status of bag of tobin: SROM occurred prior to admission, clear fluid. heart tones during active labor were Category 1. She was complete at 2033 and started pushing at 0. She made excellent descent throughout the second stage of labor, and had a normal spontaneous vaginal delivery at 2310. heart tones during second stage of labor were category 2 for intermittent variable decelerations with rapid return to normal baseline, intermittent minimal variability. Baby delivered OA, restituted URBANO and the anterior and posterior shoulders delivered without difficulty. Nuchal cord: absent. The cord was clamped and cut after delayed cord clamping, at 8 minutes per patient preference. Patient declined active management of the third stage despite counseling, where after 30 minutes without placental delivery. Intermittent bleeding occurred while awaiting placental delivery, where patient would intermittently allow for a brief trial of pushing or cord traction. At 30 minutes, I counseled Hemalatha that her QBL was at 675mL where I would strongly recommend IV pitocin infusion and gentle cord traction/expulsive efforts to facilitate placental delivery. She agreed, where pitocin was started at 2348. At 45 minutes, placenta was still undelivered where patient agreed to a pushing effort. With this, she passed two large blood clots where I then explained active management was clearly indicated given ongoing PPH with undelivered placenta. Patient consented to IV TXA and continuous cord traction with intermittent pushing efforts. The placenta subsequently delivered at 2358. Fundal massage was performed immediately thereafter, with improvement of uterine tone and no active bleeding. Cord gases sent: no Cord blood sent for ABO: no details: - Liveborn male fetus at 2310 - weight: pending at time of documentation - APGARs were 8 and 8 at 1 and 5 minutes respectively Perineum and vagina were inspected, and the following lacerations were noted: bilateral superficial labial lacerations, left greater than right. Repair was done of the left laceration with two interrupted subcuticular stitches. Right was left unrepaired by patient request, hemostatic. Uterine massage again was performed, excellent tone noted. Excellent hemostasis was noted. The following counts were correct: sponges, needles, instruments. Mother and infant in stable condition following the . Recommended placenta be sent for pathology due to intrapartum hypertensive dis order of diagnosis (labs pending), patient politely declined. Infant Infant Gender: Male presentation: vertex Placental Delivery Description: Spontaneous Cord Description: 3 Vessels
[2025-06-27 00:53] LABS: Hematocrit 32.8 % (33.0-51.0); Hemoglobin* 11.0 gm/dL (12.0-16.0); Immature Granulocytes Pct Auto 1.9 %; Mean Corpuscular HGB Conc 34 gm/dL (32-36); Mean Corpuscular Hemoglobin 28 pg (26-34); Mean Corpuscular Volume 82 fL (80-100); RDW Coefficient of Variation % 13.0 % (11.5-15.5); Red Blood Count 4.00 m/uL (4.00-5.20); White Blood Count* 24.96 K/uL (4.50-11.00)
[2025-06-27 00:57] LABS: Immature Granulocytes Abs Auto 0.50 K/uL (0.00-0.30); Lymphocytes Absolute Auto 1.10 K/uL (0.90-2.90); Slide Review Reflex No
[2025-06-27 01:09] LABS: Alanine Aminotransferase* 21 U/L (4-35); Aspartate Amino Transferase* 36 U/L (12-35); Creatinine* 0.8 mg/dL (0.5-1.5); Estimated Glomerular Filt Rate 97 ml/min
[2025-06-27] MEDS: IBUPROFEN 600 MG TABLET PO ×2 (09:00→18:35)
--- NOTE | 2025-06-27 12:55 | PM.OBPNVD1 ---
OB - PN:Subj Subjective Date Seen: 06/27/25 Patient comments OB post-: no complaints, pain well controlled, tolerating diet and flatus present [place] status: and doing well [place] feeding status: exclusively Narrative: Hemalatha feels well.? Her pain is well controlled with current medications.? She has no new complaints.? Urinary output is adequate and she is voiding without difficulty.? Has a good appetite, is tolerating a general diet, is passing flatus, and has had a small bowel movement.? Has scant amount of rubra lochia.? She is ambulating well.?Still working on and encouraged for assistance. OB - PN: Obj Exam Physical Exam: Vital signs: Temp Pulse Resp BP Pulse Ox O2 Del Method 98 F 105 H 16 112/74 100 Room Air 06/27/25 08:52 06/27/25 08:52 06/27/25 08:52 06/27/25 08:52 06/27/25 08:52 06/27/25 08:52 Narrative: GENERAL APPEARANCE:? normal affect, alert, no distress? MOOD:? appropriate? CHEST:? clear to auscultation and percussion? HEART:? regular rate and rhythm? BREASTS: soft, nontender, no erythema, nipples intact? ABDOMEN:? soft, non-tender the uterine fundus is U/2 and is appropriate for the stage of recovery.? PERINEUM:? mild edema of the perineum, there is a labial laceration that is healing well.? EXTREMITIES:? normal and no edema? OB - PN: Obj Data Labs Labs: Laboratory Results - last 24 hr 06/26/25 06/27/25 15:20 00:44 WBC 17.38 H 24.96 H RBC 5.05 4.00 Hgb 13.8 11.0 L Hct 41.1 32.8 L MCV 81 82 MCH 27 28 MCHC 34 34 RDW Coeff of Hiram 12.7 13.0 Plt Count 264 219 Neut % (Auto) 89.2 H 85.8 H Lymph % (Auto) 7.1 L 4.4 L [place] % (Auto) 3.0 7.9 Eos % (Auto) 0.0 0.0 Baso % (Auto) 0.2 0.0 Neut # (Auto) 15.50 H 21.40 H Lymph # (Auto) 1.20 1.10 [place] # (Auto) 0.50 2.00 H Eos # (Auto) 0.00 0.00 Baso # (Auto) 0.00 0.00 Abs Immat Gran (auto) 0.10 0.50 H Imm/Tot Granulo (auto) 0.5 1.9 Creatinine 0.8 Estimated GFR 97 AST 36 H ALT 21 Blood Type A Positive Antibody Screen NEGATIVE OB - PN: A/P Delivery Assessment and Plan (1) HSV-2 (herpes simplex virus 2) infection: Problem details: no hx of genital lesions Status: Acute (2) Previous delivery affecting : Status: Acute (3) Seizure disorder: Problem details: no seizures for many years, followed by neurologist [facility] Status: Acute (4) Gestational hypertension: Status: Acute (5) Lactating mother: Status: Acute (6) care following vaginal delivery: Status: Acute Plan day: 1 Plan: routine care Comments: Anticipate discharge home tomorrow.
[2025-06-28 04:05] VITALS: BP 107/65; PULSE 78; RESP 16; TEMP 36.5; O2SAT 99
[2025-06-28 06:19] LABS: Hemoglobin* 8.3 gm/dL (12.0-16.0)
--- NOTE | 2025-06-28 08:31 | P.DS_ITS ---
DS: Providers Provider Date Seen: 06/28/25 Date of admission: 06/26/25 15:11 Primary care physician: Not a Local Provider Admitting Clinician: Alejandra Dempsey MD Attending Physician on discharge: Sherri Bruce CNM Date of Discharge: 06/28/25 DS: Diagnosis Discharge Diagnosis (1) care following vaginal delivery: Status: Acute (2) Lactating mother: Status: Acute (3) Gestational hypertension: Status: Acute (4) Anemia, posthemorrhagic, acute: Status: Acute Exam Narrative: Exam Narrative: VSS, afebrile GENERAL APPEARANCE: ?normal affect, alert, no distress MOOD: ?appropriate HEENT: normocephalic, neck supple, full ROM CHEST: ?Symmetrical chest wall movement. ?Normal respiratory effort. ?Clear to auscultation HEART: ?regular rate and rhythm ABDOMEN: ?soft, non-tender. Uterine fundus is firm, at Umbilicus, Midline and is appropriate for the stage of recovery. ?Bowel sounds present. PERINEUM: ?mild edema of the perineum, there is a labial degree laceration that is healing well. EXTREMITIES: ?normal and trace edema Const: Vital Signs, click to edit/add: Vital Signs - 24 hr 06/27/25 08:52 06/27/25 13:18 06/27/25 18:29 Temperature 98 F 98.4 F 98.1 F Pulse Rate [Pulse Oximeter] 105 H 86 99 Respiratory Rate 16 16 16 Blood Pressure [Le ft Arm] 112/74 93/52 L 108/72 Pulse Oximetry 100 97 97 Oxygen Delivery Me thod Room Air Room Air Room Air 06/27/25 21:49 06/28/25 04:05 Temperature 98.0 F 97.7 F Pulse Rate [Pulse Oximeter] 102 H 78 Respiratory Rate 16 16 Blood Pressure [Le ft Arm] 114/67 107/65 Pulse Oximetry 98 99 Oxygen Delivery Me thod Room Air Room Air Documenting provider has reviewed patient's vital signs: yes OB - DS: Summary Hospital Course Hospital Course: Hemalatha is a 35 y.o. who was admitted to [facility] for labor. ?She had an uncomplicated NVD, was diagnosed with gestational hypertension during this stay .?The patient feels well. ?The pain is well controlled with current medications. ?She has no new complaints. ?She is breast feeding and reports things are going well.? the patient has done well.? Vitals have been stable.? She has remained afebrile.? Has a good appetite, is tolerating a general diet. ?She is voiding without difficulty.? She is passing gas and has had a bowel movement.? She is ambulating and denies any dizziness.? Has Small amount of rubra lochia. ?She is undecided on her plan for prevention. She was started on oral iron today due to her low hemoglobin level, denies feeling dizzy when up and has no shortness of breath at rest or with activity. Peripartum Data Infant delivery method: Vaginal Laceration description: Labial complications: none Infant Gender: Male Infant Discharge Plan: Home Status at Discharge Functional status at discharge: independent ambulation Overall status at discharge: patient is progressing back to baseline Time Spent with Patient Time attestation: Total time spent providing and/or coordinating discharge services: Time spent: Less than 30 minutes Discharge Plan Discharge Disposition: Home, Self-Care Date of Admission: 06/26/25 15:11 Attending Provider on Discharge: Sherri Bruce Primary Care Provider: Provider,Not a Local Condition: Stable Anticipated Discharge Date/Time: 06/28/25 12:00 Discharge Medications: New acetaminophen 500 mg Tablet 1,000 mg PO Q6H PRNQty: 0 0RF docusate sodium 100 mg Capsule 100 mg PO DAILY Qty: 90 1RF ferrous sulfate 325 mg (65 mg iron) Tablet 325 mg PO Q48H Qty: 30 0RF ibuprofen 600 mg Tablet 600 mg PO Q6H PRNQty: 60 0RF Continued magnesium 250 mg tablet 250 mg PO QDAY levetiracetam [Keppra] 750 mg tablet 1,000 mg PO BID DHA 200 mg capsule 200 mg PO QDAY Discharge Orders: Discharge Order (Routine); Ordered 06/28/25 Ordered By: Sherri Bruce Patient Education: OB Over the Counter Medication Information, * *OB Vaginal/Breast Feeding Additional Instructions: Discharge instructions were reviewed with the patient including signs and symptoms of infection and home going medications Nothing vaginally for 6 weeks: no tampons or intercourse Off Work or School for 6 weeks [facility] for a BP check?07/01/25 Call with BP greater than or equal to 150/100 2-week visit: discuss infant feeding concerns, review control options and screen for anxiety/depression. 6-week visit for an annual exam. consultation services are available to all mothers and babies for the first year after delivery.? To make an appointment, please call [phone]. Activity Level: Activity as Tolerated Discharge Diet: Regular Follow Up Appointments: Provider,Not a Local [Primary Care Provider, Family Practice] [facility] [Provider Group] Forms: Patient Belongings, MyHealth Info Instructions
[2025-06-28 09:30] VITALS: BP 112/72; PULSE 86; RESP 16; TEMP 36.6; O2SAT 97
[2025-06-28] MEDS: FERROUS SULFATE 325 MG TABLET PO (11:38)
[2025-06-28] MEDS: DOCUSATE SODIUM 100 MG CAPSULE PO (11:38)
[2025-06-28 14:47] VITALS: BP 113/76; PULSE 89; RESP 18; TEMP 36.9; O2SAT 99
[2025-06-28] MEDS: IBUPROFEN 600 MG TABLET PO (15:04)
== END 2025-06-28 16:20 | disposition home or self-care (01) | DRG 806 ==
LOC: OB OUT 15:11 → OB 15:11
PROVIDERS: Admitting Provider Obstetrics & Gynecology; Visit Provider Obstetrics & Gynecology
DX: O34.211 Maternal care for low transverse scar from previous cesarean delivery (principal); D62 Acute posthemorrhagic anemia; O72.1 Other immediate postpartum hemorrhage; O99.354 Diseases of the nervous system complicating childbirth; O98.32 Other infections with a predominantly sexual mode of transmission complicating childbirth; O13.4 Gestational [pregnancy-induced] hypertension without significant proteinuria, complicating childbirth; O90.81 Anemia of the puerperium; O69.89X0 Labor and delivery complicated by other cord complications, not applicable or unspecified; O70.0 First degree perineal laceration during delivery; G40.909 Epilepsy, unspecified, not intractable, without status epilepticus; A60.00 Herpesviral infection of urogenital system, unspecified; Z37.0 Single live birth; Z3A.37 37 weeks gestation of pregnancy
CPT/HCPCS: 01967; 36415; 82565; 84450; 84460; 85018; 85025; 86592; 86850; 86900; 86901; A9270; J2003; J2795; J7120